=== PATIENT | male | born 1975 | race Caucasian/White ===

== ENCOUNTER 2025-05-16 13:10 | Emergency (ER) | payer MEDICAID ==
[~2025-05-16] VITALS: Ht 175.3 cm; Wt 77.3 kg
[~2025-05-16 13:10] MED LIST: NO HOME MEDS
--- NOTE | 2025-05-16 14:21 | Physician Documentation ---
History of Present Illness ~ Chief Complaint: Groin Pain Stated Complaint: HERNIA Time Seen by MD: 18:14 Primary Medical Doctor: NONE HPI This is a 50-year-old male with a history of right-sided inguinal hernia who presents with right-sided groin pain worse for the past two days, patient reports associated nausea, vomiting, chills, and loss of appetite though reports normal bowel movements. Patient reports that he has been awaiting a surgery for the past five years for repair of hernia though reports that since he was incarcerated he has had difficulty scheduling the surgery. Patient reports no other acute symptoms or concerns. Medication Reconciliation Allergies: Coded Allergies: Penicillins (Verified Allergy, 06/11/11) Miscellaneous Medications Home Med List (No Home Medications), (Reported) Durable Medical Equipment [belt], EA, (DME) Past Medical History Past Medical History: No Pertinent History Past Surgical History: no surgical history Alcohol Use: None Drug Use: marijuana, methamphetamine Lives In: Home Occupation: employed Review of Systems ROS As stated above in the HPI, otherwise all systems are reviewed and negative. Physical Exam Vital Signs: Temperature: 98.8, Heart Rate: 71, Respiratory Rate: 17, BP: 139/97, Pulse Oximetry: 99, Weight: 77.270 Oxygen Flow Rate: 0 Physical Exam VITALS: Reviewed and as above. GENERAL: Alert, nontoxic appearing, no apparent distress. RESPIRATORY: No increased work of breathing, no respiratory distress, speaking in full clear sentences, clear lung sounds in all [place] CV: Regular rate and rhythm no murmur GI: Reducible mass to right groin minimally tender, no erythema, no ecchymosis. Otherwise abdomen Soft, nontender, no rebound, no guarding, bowel sounds present : No testicular tenderness MUSCULOSKELETAL: Progress Results/Orders Results/Orders Vital Signs 05/16/25 05/16/25 05/16/25 05/16/25 13:16 18:07 18:32 18:43 Temp 98.8 98.8 Pulse 71 60 74 Resp 17 15 15 12 B/P (MAP) 139/97 128/90 (103) 141/106 Pulse Ox 99 98 100 O2 Flow Rate 0 Medical Decision Making Additional information obtaine: N/A Findings MSE performed in triage and patient returned to ED lobby by nursing staff to await available ED room This 50-year-old male with a history of inguinal hernia diagnosed five years prior presented to the emergency department due to concern for worsening hernia symptoms including increased size of hernia and several days of nausea and poor appetite. It is reassuring patient reports hernia is not currently significantly painful and he is having normal bowel movements and he has not had any recent vomiting. Physical exam significant for reducible mass to the right inguinal area consistent with uncomplicated hernia, reassuring that hernia is easily reduced without significant pain. Remainder of physical exam benign and further imaging and lab work is not in indicated. Patient is well-appearing and hemodynamically stable appropriate for outpatient follow up. Patient has been advised he must follow up soon as possible with a surgeon for definitive repair of the hernia, patient provided careful return to care precautions, follow up instructions and home care instructions including the use of a hernia belt. Patient verbalized understanding of all discharge instructions. Urinary Diff Dx:Considerations: Include: AAA, Aortic dissection, Appendicitis, Appendicitis train, Bowel obstruction, Bladder outlet obstruc., Cholelithiasis, Choleangitis, Cholecystitis, Epididymitis, Impaction, Musculoskeletal pain, Pancreatitis, Prostatitis, Pyelonephritis, Renal failure, Renal infarction, Strain, Urolithiasis, Urinary Obstruction, Urethritis, Urinary retention, UTI Genital Diff Dx:Considerations: Include: Abscess, Balanitis, Balanoposthitis, Cellulitis, Epididymitis, Entrapment injury, Nimo's gangrene, Foreign body, Hydrocele, Inguinal hernia, Post-op Complication, Paraphimosis, Prostatitis, Priapism, Testicular torsion, Urinary retention, Urethritis, UTI Departure Time of Disposition: 18:24 Disposition: 01 HOME / SELF CARE / HOMELESS Impression: Primary Impression: Right inguinal hernia Condition: Improved Discharge Instructions: Hernia Additional Instructions: Please shrimp picker a hernia belt to use on the area of your hernia, additionally wear supportive underwear to decrease the amount your hernia protrudes while conducting daily activities. Follow up soon as possible with the surgeon to schedule definitive management of your hernia. Please follow up with your primary care provider in the next few days. Please return to the emergency department for any new or worsening concerning symptoms. Referrals: NO PRIMARY CARE PROVIDER (PCP) Prescriptions [belt] No Conflict Check MARYCRUZ, #1 Prov: TATIANA VILLEGAS 05/16/25 Education Educated: Patient Educated regarding: diagnosis, treatment, prognosis, need for follow up Signature Scribe Signature: No scribe Attestation: The note accurately reflects work and decisions made by me.MEDINA Link 05/16/25 20:37 TATIANA VILLEGAS May 16, 2025 14:20
[2025-05-16] MEDS ORDERED: [UNRECOGNIZED DRUG - SUPPLY] (18:27)
[2025-05-16 18:43] VITALS: BP 141/106; PULSE 74; RESP 12; TEMP 98.8; O2SAT 100
== END 2025-05-16 18:44 | disposition home or self-care (01) ==
LOC: ER 13:10
DX: K40.90 Unilateral inguinal hernia, without obstruction or gangrene, not specified as recurrent (principal); F12.90 Cannabis use, unspecified, uncomplicated; F15.90 Other stimulant use, unspecified, uncomplicated; Z88.0 Allergy status to penicillin
CPT/HCPCS: 99282